=== PATIENT | male | born 1985 | race Caucasian/White ===

== ENCOUNTER 2019-01-09 13:49 | Emergency (ER) | payer OTHER ==
[~2019-01-09] VITALS: Ht 172.7 cm; Wt 69.9 kg
[2019-01-09 14:10] VITALS: BP 148/68
--- NOTE | 2019-01-09 14:21 | NUR ---
ALMAZ WITH ASSISTANCE TO ANH. Addendum: 01/09/19 at 1421 by [email or web address] REPORTED GIVEN TO LYNETTE MARCELO
[2019-01-09] MEDS ORDERED: NACL 0.9% 1,000 ML IV ONE ×2 (14:30→15:50)
[2019-01-09] MEDS ORDERED: KETOROLAC 15 MG/ML VIAL IVP ONE (14:30)
[2019-01-09] MEDS ORDERED: ACETAMINOPHEN 325 MG TAB PO ONE (14:30)
--- NOTE | 2019-01-09 14:50 | NUR ---
PT BIB BROTHER C/O COUGH,FEVER & CHEST PAIN X 2 DAYS. PLACED ON MONITOR, WAITING FOR ER MD FOR EVALUATION.
[2019-01-09 15:00] LABS: APPEARANCE,URINE HAZY (CLEAR); BILIRUBIN,URINE 1+ (NEGATIVE); BLOOD, URINE NEGATIVE (NEGATIVE); COLOR,URINE YELLOW (YELLOW); LEUKOCYTE ESTERASE ,URINE NEGATIVE (NEGATIVE); NITRITE, URINE NEGATIVE (NEGATIVE); PH,URINE 7.5 (5.0-9.0); UGLUCOSE NEGATIVE (NEGATIVE)
--- NOTE | 2019-01-09 15:00 | NUR ---
MEDICATION ADMINISTERED ORDERED. NO ADVERSE REACTION.
[2019-01-09 15:01] LABS: BASOPHILS # (AUTO) 0.1 K/uL (0.00-0.22); BASOPHILS % (AUTO) 0.3 % (0.0-2.0); EOSINOPHILS % (AUTO) 0.2 % (0.0-4.0); HEMATOCRIT 38.7 % (36-52); HEMOGLOBIN 12.8 g/dL (12.0-18.0); LYMPHOCYTES # (AUTO) 0.9 K/uL (2.0-11.5); LYMPHOCYTES % (AUTO) 4.2 % (20.5-51.1); MEAN CORPUSCULAR HEMOGLOBIN 28 pg (27-31); MEAN CORPUSCULAR HGB CONC 33 g/dL (33-37); MEAN CORPUSCULAR VOLUME 83.6 fL (80-94); MONOCYTES # (AUTO) 0.8 K/uL (0.8-1.0); MONOCYTES % (AUTO) 3.9 % (1.7-9.3); NEUTROPHILS # (AUTO) 20.1 K/uL (1.8-7.7); NEUTROPHILS % (AUTO) 91.4 % (42.2-75.2); PLATELET COUNT (AUTO) 272 K/uL (140-450); RED BLOOD CELL COUNT(AUTO) 4.63 MIL/uL (4.20-6.10); RED CELL DISTRIBUTION WIDTH 13.9 % (11.6-13.7)
[2019-01-09 15:21] LABS: ALBUMIN 2.9 g/dL (3.4-5.0); ANION GAP 9.5 (8-16); CARBON DIOXIDE 29.2 mmol/L (21-32); CREATININE 1.2 mg/dL (0.7-1.3); POTASSIUM 3.7 mmol/L (3.5-5.1); TOTAL BILIRUBIN 0.9 mg/dL (0.0-1.0)
[2019-01-09] MEDS ORDERED: DOXYCYCLINE 100 MG in DEXTROSE 5% 100 ML IV STA (15:48)
[2019-01-09] MEDS ORDERED: cefTRIAXone 1,000 MG VIAL ONE (16:21)
[2019-01-09] MEDS ORDERED: DOXYCYCLINE 100 MG in DEXTROSE 5% 100 ML IV SCH (17:05)
--- NOTE | 2019-01-09 18:11 | NUR ---
WAITING FOR IV FLUIDS TO BE FINISHED TO D/C PT.
--- NOTE | 2019-01-09 18:40 | NUR ---
Patient discharged with v/s stable. Written and verbal after care instructions given and explained. Patient alert, oriented and verbalized understanding of instructions. Ambulatory with steady gait. All questions addressed prior to discharge. ID band removed. Patient advised to follow up with PMD. Rx of levofloxacin and promethazine given. Patient educated on indication of medication including possible reaction and side effects. Opportunity to ask questions provided and answered.
[2019-01-09 18:50] VITALS: BP 116/59
== END 2019-01-09 18:40 | disposition home or self-care (01) ==
LOC: MED 13:49
DX: J18.1 Lobar pneumonia, unspecified organism (principal); J45.909 Unspecified asthma, uncomplicated; Z98.890 Other specified postprocedural states; Z59.0 Homelessness
CPT/HCPCS: 36415; 71045; 80053; 81003; 83605; 85025; 87040; 87804; 96365; 96366; 96368; 96375; 99284; J0696; J1885; J3490; J7060; Q0092; J7030